=== PATIENT | male | born 1955 | race Two or more races ===

== ENCOUNTER 2016-11-15 14:45 | Outpatient (CLI) | payer OTHER ==
[~2016-11-15] VITALS: Ht 179.1 cm; Wt 87.3 kg
[~2016-11-15 14:45] MED LIST: AZIT250T94 PO; D-ME118S6 PO; DIAZ-90 PO; IBUP800T25 PO
[2016-11-15 15:04] VITALS: BP 132/66; PULSE 66; RESP 16; Ht 179.1 cm; Wt 87.3 kg
[2016-11-15] MEDS ORDERED: FLUT9.9S NASAL (15:15)
[2016-11-15] MEDS ORDERED: LEVO25TA53 PO (15:15)
[2016-11-15] MEDS ORDERED: TAMS-14 PO (15:15)
--- NOTE | 2016-11-15 16:36 | CONS ---
[facility] INITIAL OUTPATIENT CONSULTATION NOTE PLACE OF SERVICE: [facility] DATE OF CONSULTATION: 11/15/2016 ASSESSMENT AND PLAN: A very pleasant 61-year-old gentleman with a few abdominal surgeries in the past including colon surgery, which as of yet is for unknown etiology, complicated by what sounds like a wound infection that then later developed into a ventral incisional hernia that was attempted to be repaired at [facility] with biologic mesh in 2014, which seems to have recurred. The size of current hernia is certainly small and the symptoms are relatively minor. Without extra imaging studies, it would be difficult to comment on the full extent of the problem, but I suspect that this is a small hernia that could be amenable to surgical repair which could be in the form of laparoscopic repair, possible open repair and most likely will have to involve use of mesh. I did not go through in detail the options since we do not have recent imaging and I recommended that we obtain a CT scan of the abdomen and pelvis with IV and oral contrast with followup visit with me so that we can discuss the findings in detail. Once we have this information, I plan on having a visit with the patient and to go over the options. I answered all the patient's and family's questions to the best of my ability and I believe that they understand and wish to proceed with the plan. With above assessment, I recommend the followin. Abdominal CT scan as well as pelvic CT scan with IV and oral contrast. 2. Followup visit with us after above. Thank you again for the opportunity to serve as a consultant electronics in the management of this very pleasant gentleman and his wonderful family. If there are any questions, please feel free to call me at [phone]. TOTAL VISIT TIME: 30 minutes of which more than half was spent in [id number] discussion with the patient, discussions with his , as well as coordination of care between multiple physicians and providers. UPDATED CLINICAL SUMMARY: A very pleasant 61-year-old gentleman with a rather complex past surgical history including appendectomy in the mid 1990s in [place] , followed by an emergency laparotomy with reported colon resection in 2012 that was complicated by a hernia after wound infection, status post attempt at repair on 11/04/2014 with biologic mesh to repair a 6 to 8 cm midline defect at [facility] by Dr. Perez Reeves. COMORBIDITIES: 1. Status post appendectomy in [facility] in the 1990s. 2. Status post emergency colon resection at [facility] in 2012. 3. Status post ventral hernia repair with biologic mesh on 11/04/2014 at [facility] (6 to 8 cm defect). 4. Functional dyspepsia. 5. Enlarged prostate with lower urinary tract infection. 6. Hypothyroidism. 7. 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 8. Elevated BMI. 9. History of pain in right hand. 10. History of pain in shoulder. 11. Vitamin D deficiency. 12. Complication of operations as described above. HISTORY OF PRESENT ILLNESS: The patient is a very pleasant 61-year-old gentleman with above-mentioned history and comorbidities, who was kindly referred to us for evaluation and management of abdominal discomfort and possible abdominal wall hernia. The patient himself reports a few months history of abdominal discomfort which he feels to the left of his umbilicus. He does not report any history of obstruction or visits to the emergency department because of his abdominal symptoms in the last few years. Does not report any changes in his appetite and no reported changes in bowel or bladder habits. He does not report any changes in his neurologic condition and no previous difficulties with infections. No prior cardiopulmonary disease. ALLERGIES: NO KNOWN DRUG ALLERGIES. MEDICATIONS: 1. Flonase. 2. Levothyroxine. 3. Flomax. SOCIAL HISTORY: The patient is and they have 2 children together. He does not report any smoking, drinking, or intravenous drug use. FAMILY HISTORY: No major reported medical, surgical or oncologic problems in the family. REVIEW OF SYSTEMS: Other than the above-mentioned, there are no other pertinent positives or pertinent negatives in a complete 14-point review of systems. PHYSICAL EXAMINATION: GENERAL: The patient appears to be a very pleasant gentleman of [place] background appearing stated age, sitting in a chair comfortably and in no acute distress. VITAL SIGNS: His BMI is 27.2. His temperature is 99.0, blood pressure 132/66, pulse 66, respiratory rate 16, pulse oximetry 95% on room air. HEENT: Normocephalic and atraumatic. Extraocular muscles and hearing are grossly intact bilaterally and symmetrically. Sclerae are nonicteric. Oral cavity is clear; oral mucosa appeared to be pink and moist. Dentition: fair. NECK: Supple. There is no lymphadenopathy or JVD. There is no submental, submandibular or supraclavicular lymphadenopathy. CHEST: Rises symmetrically with each breath; patient is breathing comfortably. There are no audible wheezes, rales or rhonchi on the gross exam. HEART: Pulse is regular and palpable on the right wrist. Capillary refill was normal. Carotid pulses are palpable bilaterally and symmetrically in the neck. EXTREMITIES: Lower extremities contain no pitting edema around the ankles bilaterally and symmetrically. ABDOMEN: Soft, nondistended and for the most part nontender to palpation. There is a 1 cm defect that is palpable to the left of and caudal to his umbilicus along the rectus sheath, which contains easily reducible hernia content which the patient can push out with Valsalva maneuver and then it promptly goes back into his abdominal cavity. The skin overlying this region appears to be normal. The rest of the area around the umbilicus appears to be solid without evidence of obvious hernia. There are no peritoneal signs or guarding. SKIN: Appears to be pink and feels warm to touch. NEUROLOGIC: Awake, alert, and follows commands appropriately. LABORATORY DATA: No relevant labs that are available from recent evaluation. Labs from 2015 showed fairly unremarkable findings with normal platelet counts. IMAGING: The patient has had a few images done in the recent past as of 2012, which would be prior to his 2015 operation, showing evidence for bowel resection. No more recent images are available. Dictated By: ANNE MARIE BUTLER/DI Conf#: [id number] DID#: [id number] CC: DEBBI ROSADO M.D.;*[facility]* [facility]
== END 2016-11-15 16:53 | disposition home or self-care (01) ==
LOC: HPC 14:45
PROVIDERS: ATTEND Transplant Surgery
DX: R10.13 Epigastric pain (principal); N40.0 Benign prostatic hyperplasia without lower urinary tract symptoms; E03.9 Hypothyroidism, unspecified; H54.2 Low vision, both eyes; E55.9 Vitamin D deficiency, unspecified; Z90.49 Acquired absence of other specified parts of digestive tract
CPT/HCPCS: G0463

== ENCOUNTER 2016-12-20 13:51 | Outpatient (CLI) | payer OTHER ==
[~2016-12-20] VITALS: Ht 172.7 cm; Wt 86.8 kg
[~2016-12-20 13:51] MED LIST changes: -AZIT250T94 PO; -D-ME118S6 PO; -DIAZ-90 PO; +FLUT9.9S NASAL; -IBUP800T25 PO; +LEVO25TA53 PO; +TAMS-14 PO
[2016-12-20 14:00] VITALS: BP 142/82; PULSE 63; RESP 18; Ht 172.7 cm; Wt 86.8 kg
--- NOTE | 2016-12-20 16:39 | PN ---
Date/Time of Note Date/Time of Note DATE: 12/20/16 TIME: 16:29 Assessment/Plan Assessment/Plan Assessment/Plan [facility] Progress Note Date of Service: 12/20/16 Today's Impression & Plan: Overall stable. Hernia clinically present to the left and slightly caudal to the umbilicus. New CT abd/pelvis 12/01/16 without evidence of obvious hernia. Also, newly reported blood in sputum and in stool. Will need further w/u of the blood prior to elective repair of the hernia recurrence. Can certainly be done when medical clearance (? need for endoscopy) has been obtained. We also have the option of waiting if the patient and family would like. I answered all the patient's and family's questions to the best of my ability and I believe that they understand and wish to proceed with the plan. With above assessment, I recommend the followin. W/u for blood seen in the sputum and stool; may need GI consult and endoscopy 2. Elective open hernia repair, possibly with mesh after above and if still desired by patient Thank you again for the opportunity to serve as a talent development consultant in the management of this very pleasant gentleman and his wonderful family. If there are any questions, please feel free to call me at [phone]. TOTAL VISIT TIME: 30 minutes of which more than half was spent in [id number] discussion with the patient, discussions with his , as well as coordination of care between multiple physicians and providers. UPDATED CLINICAL SUMMARY: A very pleasant 61-year-old gentleman with a rather complex past surgical history including appendectomy in the mid in [facility] , followed by an emergency laparotomy with reported colon resection in 2012 that was complicated by a hernia after wound infection, status post attempt at repair on 11/04/2014 with biologic mesh to repair a 6 to 8 cm midline defect at [facility] by Dr. Perez Reeves. COMORBIDITIES: 1. Status post appendectomy in [facility] in the . 2. Status post emergency colon resection at [facility] in 2012. 3. Status post ventral hernia repair with biologic mesh on 11/04/2014 at [facility] (6 to 8 cm defect). 4. Functional dyspepsia. 5. Enlarged prostate with lower urinary tract infection. 6. Hypothyroidism. 7. 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 8. Elevated BMI. 9. History of pain in right hand. 10. History of pain in shoulder. 11. Vitamin D deficiency. 12. Complication of operations as described above. Subjective: No major events or complaints; no abd pain; reported seeing blood in stool and also in his sputum last week; no n/v/d; no sob or cp; + flatus; + BM; + activity Objective: Vitals: See below Exam: GENERAL: On exam, the patient was sitting in a chair and appeared to be comfortable and in no acute distress ABDOMEN: Soft, nontender and nondistended. Old incisions are clean, dry and intact without any evidence of erythema, edema, discharge, or hernia, with the exception of a small defect to the left of and slightly caudal to the umbilicus that appears more prominent with Valsalva maneuver. There are no peritoneal signs or guarding. SKIN: Skin appears to be pink and feels warm to touch. NEUROLOGIC: Patient is awake, alert, and follows commands appropriately. Exam/Review of Systems Vital Signs Vitals Vital Signs Date Time Temp Pulse Resp B/P Pulse Ox O2 Delivery O2 Flow Rate FiO2 12/20/16 14:00 98.7 63 18 142/82 96 Room Air ANNE MARIE DUFF M.D. Dec 20, 2016 16:38
== END 2016-12-20 17:00 | disposition home or self-care (01) ==
LOC: HPC 13:51
PROVIDERS: ATTEND Transplant Surgery
DX: K43.9 Ventral hernia without obstruction or gangrene (principal); N40.1 Benign prostatic hyperplasia with lower urinary tract symptoms; E03.9 Hypothyroidism, unspecified
CPT/HCPCS: G0463